=== PATIENT | male | born 1990 | race Two or more races ===

== ENCOUNTER 2020-08-04 14:33 | Emergency (ER) | payer MEDICAID ==
[~2020-08-04] VITALS: Ht 175.3 cm; Wt 98.4 kg
[~2020-08-04 14:33] MED LIST: HYDR-3547 PO; OMEP20CA74
[2020-08-04 14:50] VITALS: BP 137/88
== END 2020-08-04 17:50 | disposition home or self-care (01) ==
LOC: ER 14:33
DX: H10.31 Unspecified acute conjunctivitis, right eye (principal); N45.1 Epididymitis; K21.9 Gastro-esophageal reflux disease without esophagitis
CPT/HCPCS: 76870